=== PATIENT | female | born 1960 | race Caucasian/White ===

== ENCOUNTER 2019-05-11 18:39 | Emergency (ER) | payer OTHER, SELFPAY ==
[2019-05-11 18:40] VITALS: BP 129/90; PULSE 83; RESP 16; TEMP 36; O2SAT 97; BMI 35.5
--- NOTE | 2019-05-11 19:06 | RAD_ITS ---
STUDY: X-RAY - LEFT KNEE REASON FOR EXAM: Female, 59 years old. Inability to bear weight TECHNIQUE: 4 view(s) of the knee. COMPARISON: None. FINDINGS: Normal visualized distal femur. Normal visualized proximal tibia and fibula. Normal proximal tibiofibular articulation. Normal medial femorotibial compartment. Normal lateral femorotibial compartment. Normal patellofemoral articulation. The soft tissue structures are unremarkable. RAD/Knee 4 or More Views IMPRESSION: Normal x-ray examination of the knee. Electronically Signed: June Fong, at 19:46 EST Tel , Service support ,
[2019-05-11] MEDS: HYDROmorphone 1 MG/ML Syringe IM (19:33)
[2019-05-11] MEDS: Ondansetron 4 MG/2 ML Vial IM (19:35)
--- NOTE | 2019-05-11 19:35 | ED.VISSUMM ---
- ER Visit Summary Date of Service: 05/11/19 Chief Complaint: [Injury to left knee] History of Present Illness: The patient is a 59 F [presents to the emergency department with injury to left knee that occurred tonight. Patient states that she was standing and turned to grab a window dressing and had sudden onset of severe pain in her left knee. Patient states that she is had knee pain for several weeks and actually saw a orthopedic surgeon 2 weeks ago who was concerned she may have a meniscal tear and offered her an MRI or a knee injection and patient decided to have a knee injection to see if it would help her symptoms. Patient now unable to bear weight since the injury tonight. She denies fall associated with the injury tonight.] Physical Examination: [HEENT-PERRLA, EOMI. Cranial nerves II through XII grossly intact. TMs clear. Mucous membranes moist. No adenopathy. Cardiovascular-regular rate and rhythm without murmur or ectopy Lungs-clear to auscultation, chest wall stable without crepitus or subcu emphysema Abdomen-normoactive bowel sounds, soft, nontender, no rebound or rigidity, no peritoneal signs. Extremities-intact ?4, normal range of motion, normal pulses. Left knee-no obvious effusion. Limited range of motion secondary to pain. Patient does not tolerate ligamentous exam. She is neurovascular intact distally. Test Results: [X-rays of the left knee obtained showed no acute fractures] Emergency Department Course and Treatment: [She was medicated with Dilaudid and Zofran IM. Patient will be given a knee immobilizer.] Treatment Plan: [Patient to follow-up with orthopedic surgeon within next 2 to 3 days. He may require further imaging including MRI.] Disposition: [Discharged home in stable condition.] Impression: [Left knee sprain-possible internal derangement] This note was generated with [employer] dictation software. It may contain incorrect words, spelling, and punctuation that were not noted in review of the chart prior to signing ED Disposition - Plan for ED Patient: Referrals: Moose Cruz MD [Primary Care Provider] -
--- NOTE | 2019-05-11 19:38 | DCINST.ED_ITS ---
ED Disposition - Plan for ED Patient: Instructions: KNEE PAIN, Meniscus Injury (Possible) Prescriptions: Hydrocodone Bitart/Apap 5-325 [[place] 5MG-325MG] 1 tab PO Q4H PRN PRN 2 Days #14 tab PRN Reason: Pain Prescription Printed Referrals: Moose Cruz MD [Primary Care Provider] - Additional Instructions: See your orthopedic doctor Antolin in 2-3 days
[2019-05-11 20:50] VITALS: RESP 18
== END 2019-05-11 20:52 | disposition home or self-care (01) ==
LOC: ED 19:14
PROVIDERS: Emergency Provider Emergency Medicine; Family Provider Family Medicine; PCP Family Medicine
DX: S83.92XA Sprain of unspecified site of left knee, initial encounter (principal); X58.XXXA Exposure to other specified factors, initial encounter; Y93.89 Activity, other specified
CPT/HCPCS: 73564; 96372; 99283; J2405